=== PATIENT | female | born 1990 | race Caucasian/White ===

== ENCOUNTER 2022-10-03 19:30 | Outpatient (CLI) | payer BC | END 2022-10-03 19:31 | disposition home or self-care (01) | LOC: SLEEPLAB 19:30 | PROVIDERS: ATTEND Family Medicine | DX: G47.33 Obstructive sleep apnea (adult) (pediatric) (principal); R53.83 Other fatigue; R40.0 Somnolence; F32.A Depression, unspecified; E66.9 Obesity, unspecified; R06.83 Snoring; Z68.31 Body mass index [BMI] 31.0-31.9, adult | CPT/HCPCS: 95810 ==